=== PATIENT | male | born 2000 | race Caucasian/White ===

== ENCOUNTER 2021-01-31 04:00 | Emergency (ER) | payer SELFPAY ==
[~2021-01-31] VITALS: Ht 167.6 cm; Wt 68.0 kg
[2021-01-31 05:08] VITALS: BP 135/87
== END 2021-01-31 05:10 | disposition home or self-care (01) ==
LOC: ER 04:01
DX: R07.89 Other chest pain (principal); F17.200 Nicotine dependence, unspecified, uncomplicated
CPT/HCPCS: 71045; 93005; 99283